=== PATIENT | female | born 1955 | race Caucasian/White ===

== ENCOUNTER 2017-05-02 08:22 | Emergency (ER) | payer BC ==
[~2017-05-02] VITALS: Ht 165.1 cm; Wt 77.1 kg
[~2017-05-02 08:22] MED LIST: ABILIFY5 MG PO; CARVEDILOL12.5 MG PO; PROZAC20 MG PO
[2017-05-02 09:17] LABS: BASOPHILS % 0.2 % (0.0-1.0); EOSINOPHILS % 0.2 % (0.0-6.0); HEMATOCRIT 45.8 % (34.2-44.1); HEMOGLOBIN 15.6 g/dL (12.0-16.0); LYMPHOCYTES # (AUTO) 0.7 (1.0-3.2); LYMPHOCYTES % 12.2 % (18.0-39.1); MEAN CORPUSCULAR HEMOGLOBIN 30.2 pg (28-32); MEAN CORPUSCULAR HGB CONC 34.1 g/dL (31-35); MEAN CORPUSCULAR VOLUME 88.6 fL (81-99); MONOCYTES # (AUTO) 0.4 (0.2-0.8); MONOCYTES % 6.4 % (4.4-11.3); NEUTROPHILS # (AUTO) 4.7 (2.1-6.9); NEUTROPHILS % 80.7 % (38.7-80.0); PLATELET COUNT 251 x10e3/uL (140-360); RED BLOOD COUNT 5.17 x10e6/uL (3.6-5.1); RED CELL DISTRIBUTION WIDTH 12.3 % (11.7-14.4)
[2017-05-02] MEDS ORDERED: SODIUM CHLORIDE 0.9% 1000ML 1,000 ML ONE (09:19)
[2017-05-02] MEDS ORDERED: SODIUM CHLORIDE 0.9% 1000ML 1,000 ML IV SCH (09:30)
[2017-05-02 09:48] LABS: ALANINE AMINOTRANSFERASE 32 IU/L (0-55); ALBUMIN 4.2 g/dL (3.5-5.0); ALBUMIN/GLOBULIN RATIO 0.9 (0.8-2.0); ALKALINE PHOSPHATASE 95 IU/L (40-150); ANION GAP 20.3 mmol/L (8-16); BLOOD UREA NITROGEN 8 mg/dL (7-26); BUN/CREATININE RATIO 10 (6-25); CALCIUM 9.8 mg/dL (8.4-10.2); CARBON DIOXIDE 22 mmol/L (22-29); CHLORIDE 92 mmol/L (98-107); CREATININE, SERUM 0.84 mg/dL (0.57-1.11); EST GLOMERULAR FILTRATION RATE > 60 ML/MIN (60-); GLUCOSE 153 mg/dL (74-118); POTASSIUM 3.3 mmol/L (3.5-5.1); SODIUM 131 mmol/L (136-145)
[2017-05-02 10:02] LABS: ACETAMINOPHEN 16 ug/mL (10-30)
[2017-05-02 10:06] LABS: SALICYLATE < 5.0 mg/dL (0-30)
[2017-05-02 10:55] LABS: BILIRUBIN,URINE NEGATIVE (NEGATIVE); CLARITY,URINE CLEAR (CLEAR); COLOR,URINE YELLOW (YELLOW); KETONES,URINE 3+ (NEGATIVE); LEUKOCYTE ESTERASE ,URINE NEGATIVE (NEGATIVE); NITRITE,URINE NEGATIVE (NEGATIVE); PROTEIN,URINE DIPSTICK NEGATIVE (NEGATIVE); URINE UROBILINOGEN 0.2 mg/dL (0.2 - 1)
[2017-05-02] MEDS ORDERED: POTASSIUM CHLORIDE 20 MEQ TAB CR PO STA (11:06)
[2017-05-02 11:12] LABS: AMPHETAMINES SCREEN,URINE NEGATIVE (NEGATIVE); BENZODIAZEPINES SCREEN,URINE POSITIVE (NEGATIVE); CANNABINOIDS SCREEN,URINE NEGATIVE (NEGATIVE); PHENCYCLIDINE SCREEN,URINE NEGATIVE (NEGATIVE)
[2017-05-02 11:14] LABS: BACTERIA,URINE RARE /HPF; EPITHELIAL CELLS,URINE FEW /LPF; RBC,URINE 0-5 /HPF (0-5); WBC,URINE (MAN) 0-5 /HPF (0-5)
[2017-05-02] MEDS ORDERED: ONDANSETRON HCL 4 MG ORAL DISINTEGRATING TAB PO ONE (13:15)
== END 2017-05-02 13:37 ==
LOC: ER 08:22
DX: T39.1X2A Poisoning by 4-Aminophenol derivatives, intentional self-harm, initial encounter (principal); T40.2X2A Poisoning by other opioids, intentional self-harm, initial encounter; F33.2 Major depressive disorder, recurrent severe without psychotic features; I10 Essential (primary) hypertension
CPT/HCPCS: 36415; 80053; 80307; 80320; 80329 ×2; 81001; 85025; 87086; 93005; 99284; J7030

== ENCOUNTER 2018-02-16 11:57 | Inpatient (IN) | payer BC ==
[~2018-02-16] VITALS: Ht 152.4 cm; Wt 74.0 kg
[2018-02-16] MEDS ORDERED: SODIUM CHLORIDE 0.9% 1000ML 1,000 ML IV STA (12:48)
[2018-02-16] MEDS ORDERED: PIPER-TAZ 3.375 GM 50 ML IV STA (12:48)
[2018-02-16] MEDS ORDERED: ACETAMINOPHEN 325 MG TAB PO STA (12:48)
--- NOTE | 2018-02-16 13:36 | Diagnostic Imaging Report ---
EXAM: FOREARM LEFT 2 VIEW DATE: 02/16/2018 12:48 PM INDICATION: \S\cat bite, rule out FB, gas in tissue, cellulitis \S\[id number] \S\1315 \S\Y swelling/fever. COMPARISON: None FINDINGS: No fracture or subluxation. No radiopaque foreign body or soft tissue gas identified. Soft tissue swelling present along the dorsum of the forearm. IMPRESSION: Soft tissue swelling along the dorsum of the forearm consistent with provided history. No radiopaque foreign body. Signed by: Dr. Bryant Lamb MD on 02/16/2018 1:33 PM
[2018-02-16 15:20] LABS: BASOPHILS % 0.2 % (0.0-1.0); HEMATOCRIT 40.5 % (34.2-44.1); HEMOGLOBIN 13.5 g/dL (12.0-16.0); LYMPHOCYTES # (AUTO) 0.9 (1.0-3.2); LYMPHOCYTES % 9.4 % (18.0-39.1); MEAN CORPUSCULAR HEMOGLOBIN 31.9 pg (28-32); MEAN CORPUSCULAR HGB CONC 33.3 g/dL (31-35); MEAN CORPUSCULAR VOLUME 95.7 fL (81-99); MONOCYTES # (AUTO) 0.6 (0.2-0.8); MONOCYTES % 6.1 % (4.4-11.3); NEUTROPHILS # (AUTO) 7.7 (2.1-6.9); PLATELET COUNT 346 x10e3/uL (140-360); RED BLOOD COUNT 4.23 x10e6/uL (3.6-5.1); RED CELL DISTRIBUTION WIDTH 12.6 % (11.7-14.4)
[2018-02-16 15:38] LABS: ANION GAP 20.7 mmol/L (8-16); BLOOD UREA NITROGEN 9 mg/dL (7-26); BUN/CREATININE RATIO 13 (6-25); CALCIUM 10.6 mg/dL (8.4-10.2); CARBON DIOXIDE 22 mmol/L (22-29); CHLORIDE 90 mmol/L (98-107); CREATININE, SERUM 0.71 mg/dL (0.57-1.11); EST GLOMERULAR FILTRATION RATE > 60 ML/MIN (60-); GLUCOSE 93 mg/dL (74-118); MAGNESIUM 1.8 MG/DL (1.3-2.1); POTASSIUM 3.7 mmol/L (3.5-5.1); SODIUM 129 mmol/L (136-145)
[2018-02-16] MEDS ORDERED: ONDANSETRON HCL INJ 2 MG/ML VIAL IV STA (18:05)
[2018-02-16] MEDS ORDERED: MORPHINE SULFATE 2 MG/ML SYR IV STA (18:05)
[2018-02-16] MEDS ORDERED: SODIUM CHLORIDE 0.9% 1000ML 1,000 ML IV SCH (18:15)
[2018-02-16] MEDS ORDERED: MORPHINE SULFATE 2 MG/ML SYR IV PRN (18:45)
[2018-02-16 19:18] LABS: CLARITY,URINE CLEAR (CLEAR); COLOR,URINE YELLOW (YELLOW)
[2018-02-16 19:19] LABS: BILIRUBIN,URINE 1+ (NEGATIVE); KETONES,URINE 2+ (NEGATIVE); LEUKOCYTE ESTERASE ,URINE NEGATIVE (NEGATIVE); NITRITE,URINE NEGATIVE (NEGATIVE); PROTEIN,URINE DIPSTICK TRACE (NEGATIVE); URINE UROBILINOGEN 0.2 mg/dL (0.2 - 1)
[2018-02-16 19:37] LABS: BACTERIA,URINE FEW /HPF; EPITHELIAL CELLS,URINE FEW /LPF; RBC,URINE 0-5 /HPF (0-5); WBC,URINE (MAN) 0-5 /HPF (0-5)
[2018-02-16] MEDS ORDERED: PIPER-TAZ 3.375 GM 50 ML ONE (19:57)
[2018-02-16] MEDS ORDERED: TRAZODONE HCL50 MG PO (20:27)
[2018-02-16] MEDS ORDERED: PROPRANOLOL HCL20 MG PO (20:27)
[2018-02-16] MEDS ORDERED: CRESTOR10 MG PO (20:27)
[2018-02-16] MEDS ORDERED: METOPROLOL SUCC50 MG PO (20:27)
[2018-02-16] MEDS ORDERED: SUBOXONE 2 MG-1 EAC2 TD (20:27)
[2018-02-16] MEDS ORDERED: BUTALB-CAFF-AC1 EACH PO (20:27)
[2018-02-16] MEDS: VANCOMYCIN 1GM/NS 250 ML 250 ML IV SCH (20:27)
[2018-02-16 21:22] VITALS: BP 142/67
[2018-02-16 22:00] VITALS: BP 142/67
[2018-02-17] VITALS (7 sets, daily range): BP systolic 122–154; BP diastolic 56–71
[2018-02-17] MEDS: SODIUM CHLORIDE 0.9% 1000ML 1,000 ML IV SCH ×4 (00:24→11:49)
[2018-02-17] MEDS: MORPHINE SULFATE INJ 4 MG/ML INJ IV PRN ×3 (00:44→10:02)
[2018-02-17] MEDS: ONDANSETRON HCL INJ 2 MG/ML VIAL IV PRN ×3 (00:44→10:02)
[2018-02-17] MEDS: VANCOMYCIN 1GM/NS 250 ML 250 ML IV SCH ×2 (09:05→17:13)
[2018-02-17] MEDS ORDERED: SUBOXONE 2 MG-1 EAC2 PO (09:45)
[2018-02-17] MEDS ORDERED: trintellix PO (09:51)
[2018-02-17] MEDS ORDERED: HYDRALAZINE HCL 20 MG/ML VIAL IV PRN (10:15)
[2018-02-17 10:42] LABS: BASOPHILS % 0.2 % (0.0-1.0); EOSINOPHILS % 0.2 % (0.0-6.0); HEMATOCRIT 32.5 % (34.2-44.1); HEMOGLOBIN 10.8 g/dL (12.0-16.0); LYMPHOCYTES % 14.8 % (18.0-39.1); MEAN CORPUSCULAR HGB CONC 33.2 g/dL (31-35); MEAN CORPUSCULAR VOLUME 96.2 fL (81-99); MONOCYTES # (AUTO) 0.6 (0.2-0.8); MONOCYTES % 8.7 % (4.4-11.3); NEUTROPHILS % 75.8 % (38.7-80.0); PLATELET COUNT 336 x10e3/uL (140-360); RED BLOOD COUNT 3.38 x10e6/uL (3.6-5.1); RED CELL DISTRIBUTION WIDTH 12.4 % (11.7-14.4)
[2018-02-17] MEDS ORDERED: ACETAMIN/BUTALBITAL/CAFFEINE TAB PO PRN (10:45)
--- NOTE | 2018-02-17 12:49 | Diagnostic Imaging Report ---
Exam: Head CT without contrast History: Headache, dizziness Comparison studies: None Technique: Axial images were obtained from the skull base to the vertex. Coronal and sagittal images reconstructed from the axial data. Dose modulation, iterative reconstruction, and/or weight based adjustment of the mA/kV was utilized to reduce the radiation dose to as low as reasonably achievable. Intravenous contrast: None Findings: Scalp: No abnormalities. Bones: No fractures, blastic or lytic lesions. Brain sulci: Appropriate for age. Ventricles: Normal in size and configuration. No hydrocephalus. Extra-axial spaces: No masses, no fluid collection. Parenchyma: No mass, hemorrhage or acute or chronic cortical vascular insults. A few subtle hypodensities in the supratentorial white matter are nonspecific but may reflect mild chronic microvascular ischemic changes. Sellar/suprasellar region: No abnormalities. Craniocervical junction: Patent foramen magnum. No Chiari one malformation. IMPRESSION: 1. No acute intracranial abnormalities. 2. Mild chronic microvascular ischemic changes. Signed by: Dr. Tonio Salomon M.D. on 02/17/2018 12:45 PM
[2018-02-17] MEDS: ACETAMIN/BUTALBITAL/CAFFEINE TAB PO PRN ×2 (12:50→22:23)
--- NOTE | 2018-02-17 13:13 | Consultation ---
DATE OF CONSULTATION: February 17, 2018 REASON FOR CONSULTATION: This patient has cat bite infection of the wrist. HISTORY OF PRESENT ILLNESS: This patient who is a 62-year-old white female comes in after she was bitten by her cat on Wednesday 4 days ago. She said she had a cat which she took in couple of years ago and she gave her, her shot and everything but is still strayed. The patient comes in after 4 days with cat bite being red and swollen. Not doing well. The wrist became painful and had to come to the hospital. According to the patient the cat is up-to-date on the rabies. REVIEW OF SYSTEMS HEENT: Negative. PULMONARY: Negative. CARDIAC: Negative. : Negative. SKIN: There is no rash. JOINT: Negative. PAST MEDICAL HISTORY: She does have history of hypertension. ALLERGIES: NKA. SOCIAL HISTORY: There is no smoking, drug abuse or alcohol abuse. FAMILY HISTORY: Unremarkable. LABORATORY DATA: Reviewed. Blood cultures still pending. White count is 9.8, hemoglobin 13.5, sodium 129, potassium 3.7, creatinine 0.71, and lactic acid 20.3. PHYSICAL EXAMINATION GENERAL: She is currently alert, oriented, and does not seem to be in acute distress. VITALS: Stable. Currently afebrile. HEENT: She is not icteric. NECK: Supple. CHEST: Clear. HEART: S1 and S2. No S3, S4. ABDOMEN: Soft. Bowel sounds present. No tenderness. EXTREMITIES: No edema. The left wrist has erythema and there is edema with severe tenderness. IMPRESSION: Cat bite, infected. Concern about the abscess. Concern about the osteomyelitis. PLAN: We will get an MRI with and without contrast of the wrist. We will consult hand surgery. I agree with vancomycin and Zosyn for now. Tdap, if not done recently. We will follow with you. Discussed internal medicine. Job#: [id number] SALOME
--- NOTE | 2018-02-17 14:42 | Diagnostic Imaging Report ---
Left Wrist MRI without contrast. History: Wrist pain. Cellulitis. Redness. Swelling. Abscess Comparison: Radiographs 02/16/2018 Technique: Coronal PD FS and PD. Axial PD FS. Sagital PD FS. Findings: Scapholunate ligament is intact. Lunotriquetral ligament is intact. Degeneration and fraying involving the ulnar styloid fibers of the triangular fibrocartilage complex. There is mild negative ulnar variance. No osteochondral lesion. No acute fracture or osteonecrosis. Mild scattered degenerative change. 2 mm dorsal ganglion cyst best seen on series 3 image 12. 1.0 cm ganglion cyst adjacent to the radial styloid/scaphoid bone best seen on series 3 image 10 through 13. Extensive soft tissue edema most pronounced at the dorsal aspect of the distal forearm/wrist. Abnormal fluid signal intensity/tenosynovitis is seen surrounding the extensor tendons and compartments 1-4. This is best seen on series 3 image 9 through 15. There is associated tendinosis and degeneration involving the extensor carpi radialis longus tendon. There is mild underlying bone marrow edema. The flexor tendons are intact. Signal intensity within the median nerve is normal. There is normal alignment of the wrist. There is dorsal capsular scarring and synovitis. Impression: Extensive soft tissue edema most pronounced at the dorsal aspect of the distal forearm/wrist. Abnormal fluid signal intensity/tenosynovitis is seen surrounding the extensor tendons and compartments 1-4. This is worrisome for an inflammatory process/infection. There is associated tendinosis and degeneration involving the extensor carpi radialis longus tendon. There is mild underlying bone marrow edema. No cortical destruction is seen. No well-formed drainable fluid collection/abscess is seen. Signed by: Dr. Robert Fisher M.D. on 02/17/2018 2:39 PM
--- NOTE | 2018-02-17 16:51 | Diagnostic Imaging Report ---
EXAM: Right upper quadrant abdominal ultrasound INDICATION: Nausea, vomiting COMPARISON: None. TECHNIQUE: Transverse and longitudinal images of the right upper quadrant abdomen were obtained FINDINGS: Liver: Size: 13 cm in the right midclavicular line, normal Appearance: Normal echogenicity, smooth contour Mass: No focal masses Gallbladder: Appears distended measuring up to 8.7 cm without pericholecystic fluid, wall thickening, stone, or reported sonographic Crespo's sign. Gallbladder wall measures 0.2 cm. Bile Ducts: Intrahepatic Ducts: No dilatation Extrahepatic Ducts: Common bile duct measures 0.3 cm, no dilatation Pancreas: Visualized portions of the pancreatic head, neck and proximal body are normal. Kidney: The right kidney measures 10.7 cm without evidence of hydronephrosis or stone. Vessels: Aorta: Not well visualized due to overlying bowel gas. Inferior Vena Cava: Visualized portions are normal Main Portal Vein: 0.8 cm, normal size with hepatopetal flow. Free Fluid: No ascites or pleural effusion IMPRESSION: Distended gallbladder without sonographic evidence of cholecystitis or stone. Otherwise unremarkable study. Signed by: Dr. Maya Gant MD on 02/17/2018 4:48 PM
[2018-02-17] MEDS: FAMOTIDINE 20 MG TAB PO SCH (17:13)
[2018-02-18 04:05] VITALS: BP 144/69
[2018-02-18 05:19] LABS: ANION GAP 16.5 mmol/L (8-16); BLOOD UREA NITROGEN < 5 mg/dL (7-26); CALCIUM 9.1 mg/dL (8.4-10.2); CARBON DIOXIDE 21 mmol/L (22-29); CHLORIDE 103 mmol/L (98-107); CREATININE, SERUM 0.55 mg/dL (0.57-1.11); EST GLOMERULAR FILTRATION RATE > 60 ML/MIN (60-); GLUCOSE 95 mg/dL (74-118); POTASSIUM 3.5 mmol/L (3.5-5.1); SODIUM 137 mmol/L (136-145)
[2018-02-18 05:21] LABS: BUN/CREATININE RATIO 9 (6-25)
[2018-02-18] MEDS: ONDANSETRON HCL INJ 2 MG/ML VIAL IV PRN ×2 (06:45→17:12)
[2018-02-18] MEDS: MORPHINE SULFATE INJ 4 MG/ML INJ IV PRN (06:45)
[2018-02-18] MEDS: SODIUM CHLORIDE 0.9% 1000ML 1,000 ML IV SCH (06:54)
[2018-02-18 08:20] VITALS: BP 143/74
[2018-02-18] MEDS ORDERED: TRAZODONE HCL 50 MG TAB PO SCH (09:00)
[2018-02-18] MEDS: TRINTELLIX 20 MG PO SCH (09:00)
[2018-02-18] MEDS ORDERED: TRINTELLIX 20 MG PO SCH (09:00)
[2018-02-18] MEDS ORDERED: SODIUM CHLORIDE 0.9% 250ML 0 ML ONE (09:33)
[2018-02-18] MEDS: METOPROLOL SUCCINATE 50 MG TAB XL PO SCH (09:48)
[2018-02-18] MEDS: VANCOMYCIN 1GM/NS 250 ML 250 ML IV SCH ×2 (09:48→18:47)
[2018-02-18] MEDS: FAMOTIDINE 20 MG TAB PO SCH ×2 (09:48→17:03)
[2018-02-18] MEDS ORDERED: BUPIVACAINE HCL 0.5% INJ 30 ML VIAL INJ ONE (11:33)
[2018-02-18] MEDS ORDERED: BACITRACIN 50,000 UNIT VIAL ONE (11:33)
[2018-02-18] MEDS ORDERED: MUPIROCIN 2% OINT 22 GM TUBE ONE (11:33)
[2018-02-18] MEDS ORDERED: HYDROMORPHONE 2MG/ML 2 MG/ML ML ONE (12:54)
[2018-02-18] MEDS ORDERED: FENTANYL CITRATE/PF 100MCG/2 ML INJ ONE (13:09)
[2018-02-18] MEDS ORDERED: MORPHINE SULFATE 2 MG/ML SYR ONE ×3 (13:30→13:51)
[2018-02-18] MEDS ORDERED: MEPERIDINE HCL INJ 50 MG/ML INJ ONE (14:04)
[2018-02-18] MEDS: ACETAMINOPHEN 325 MG TAB PO PRN (14:20)
--- NOTE | 2018-02-18 14:47 | Consultation ---
DATE OF CONSULTATION: February 17, 2018 REQUESTING PHYSICIAN: Dr. English, infectious disease. CHIEF COMPLAINT: Cat bite, left hand. HISTORY OF PRESENT ILLNESS: The patient is a 62-year-old right-hand dominant female who approximately one week ago was bitten by a cat on the left wrist. The patient states that over 48 to 72 hours after the bite the wrist became painful and swollen. She was seen at her nursing care center and then referred for admission. The patient was admitted yesterday and started on intravenous antibiotics and consultation is now requested of hand surgery for possible surgical intervention. PAST MEDICAL HISTORY: Noncontributory to the current problem. CURRENT PHYSICAL EXAMINATION: VITAL SIGNS: The patient is afebrile. Vital signs are stable. EXTREMITIES: There is extreme swelling and erythema surrounding a puncture wound on the dorsal radial aspect of the right wrist. Erythema extends up the forearm. The hand and wrist are quite swollen and there is pain with passive extension of the thumb, wrist and fingers. PERTINENT LABORATORY: Shows a white blood cell count of 6.5. An MRI was just done today that shows purulent tenosynovitis involving the extensor tendons of the 2nd and 3rd dorsal compartments. IMPRESSION: Purulent extensive tenosynovitis. PLAN: The patient has just finished eating. She will be kept n.p.o. after midnight and taken to the OR tomorrow for decompression of the extensor tendons. Aerobic and anaerobic studies will be performed at this time. Thank you for allowing me to participate in the care of your patient. Sincerely, Job#: [id number]
--- NOTE | 2018-02-18 15:16 | Operative Report ---
DATE OF PROCEDURE: February 18, 2018 PREOPERATIVE DIAGNOSIS: Cat bite left wrist. POSTOPERATIVE DIAGNOSIS: Purulent extensor tenosynovitis of the 2nd and 3rd dorsal compartments. PROCEDURE PERFORMED: Drainage of extensor tendon sheath, left 2nd and 3rd dorsal compartments. ANESTHESIA: General. INDICATIONS: The patient is a 62-year-old right hand dominant female who has a cat bite with purulent extensor tenosynovitis. The risks, benefits and alternatives of treatment were discussed with the patient. She is prepared to undergo the procedures outlined. DETAILS OF PROCEDURE: Patient was marked preoperatively in the holding area. She was brought to the operating theater. After the induction of adequate general anesthesia, she was prepped and draped in a supine position. A time out was performed. The left upper extremity was elevated for 3 to 4 minutes, and then a tourniquet was inflated to a pressure of 250 mmHg. A curvilinear incision was marked out over the dorsal radial aspect of the wrist and its encompassing 2 separate puncture wounds. The incision was made through the skin and subcutaneous tissue. Venous tributaries were controlled with the bipolar cautery. Immediately upon entering the subcutaneous space, purulent exudate was encountered and this was cultured for both aerobic and anaerobic studies. There was a large degree of extensor tenosynovitis which was inflammatory in nature directly at the distal aspect of the extensor retinaculum over the 2nd dorsal compartment. The 2nd dorsal compartment was incised, and purulent exudate was encountered. The extensor tenosynovium surrounding the extensor tendons was debrided, and then the 2nd dorsal compartment was copiously irrigated with an antibiotic-containing solution until the effluent was clear. The EPL tendon was then identified, and it was traced through the extensor retinaculum partially and noted to have no significant purulence but there was some inflammatory tissue around the exit site of the EPL from beneath the extensor retinaculum and this was removed as well. At this point, once the infectious material had been removed, packing was placed in the 2nd dorsal compartment. The wound was closed loosely over the packing using 5-0 nylon in interrupted horizontal mattress fashion. A Marcaine field block was performed at the operative site. Tourniquet was deflated. All the fingers pinked up nicely, and a sterile bulking conforming bandage was applied from the fingertips to the forearm. A fiberglass splint was fashioned to maintain the wrist in a modest amount of extension and held in place with a loosely wrapped Danilo wrap. Patient tolerated the procedure well and was brought to the recovery room in satisfactory condition. The patient was then admitted to the recovery room and transferred to her hospital bed for further care and treatment. Job#: [id number] EV
[2018-02-18 16:00] VITALS: BP 158/87
[2018-02-18] MEDS: PIPER-TAZ 3.375 GM 50 ML IV SCH (17:03)
[2018-02-18] MEDS: ACETAMIN/BUTALBITAL/CAFFEINE TAB PO PRN (19:11)
[2018-02-18] MEDS ORDERED: DEXAMETHASONE SOD PHOS INJ 4 MG/ML VIAL ONE (19:35)
[2018-02-18] MEDS ORDERED: ONDANSETRON HCL INJ 2 MG/ML VIAL ONE (19:35)
[2018-02-18] MEDS ORDERED: SEVOFLURANE INHAL SOLN 250 ML PEN BTL ONE (19:35)
[2018-02-18] MEDS ORDERED: PROPOFOL IV EMULSION 10 MG/ML 20 ML VIAL ONE (19:35)
[2018-02-18] MEDS ORDERED: LIDOCAINE HCL 2% LOCAL INJ 5 ML SDV VIAL INJ ONE (19:35)
[2018-02-18] MEDS ORDERED: MIDAZOLAM HCL 2 MG/2 ML VIAL ONE (19:35)
[2018-02-18] MEDS ORDERED: KETAMINE HCL INJ 50 MG/ML 10 ML VIAL ONE (19:35)
[2018-02-18 20:00] VITALS: BP 133/66
[2018-02-18 20:30] VITALS: BP 133/66
[2018-02-18] MEDS: TRAZODONE HCL 50 MG TAB PO SCH (21:45)
[2018-02-19 00:08] VITALS: BP 123/62
[2018-02-19] MEDS: PIPER-TAZ 3.375 GM 50 ML IV SCH ×4 (00:40→16:52)
[2018-02-19] MEDS: SODIUM CHLORIDE 0.9% 1000ML 1,000 ML IV SCH (02:54)
[2018-02-19] MEDS: MORPHINE SULFATE INJ 4 MG/ML INJ IV PRN ×3 (02:58→16:00)
[2018-02-19] MEDS: ACETAMINOPHEN 325 MG TAB PO PRN (04:06)
[2018-02-19] MEDS: ACETAMIN/BUTALBITAL/CAFFEINE TAB PO PRN ×3 (04:45→20:07)
[2018-02-19 05:29] LABS: BASOPHILS % 0.2 % (0.0-1.0); EOSINOPHILS # (AUTO) 0.1 (0.0-0.4); EOSINOPHILS % 0.8 % (0.0-6.0); HEMATOCRIT 30.9 % (34.2-44.1); HEMOGLOBIN 10.6 g/dL (12.0-16.0); LYMPHOCYTES # (AUTO) 1.8 (1.0-3.2); LYMPHOCYTES % 29.1 % (18.0-39.1); MEAN CORPUSCULAR HEMOGLOBIN 31.8 pg (28-32); MEAN CORPUSCULAR HGB CONC 34.3 g/dL (31-35); MEAN CORPUSCULAR VOLUME 92.8 fL (81-99); MONOCYTES # (AUTO) 0.5 (0.2-0.8); MONOCYTES % 8.5 % (4.4-11.3); NEUTROPHILS # (AUTO) 3.9 (2.1-6.9); NEUTROPHILS % 61.1 % (38.7-80.0); PLATELET COUNT 371 x10e3/uL (140-360); RED BLOOD COUNT 3.33 x10e6/uL (3.6-5.1); RED CELL DISTRIBUTION WIDTH 12.2 % (11.7-14.4)
[2018-02-19 05:46] LABS: ANION GAP 15.5 mmol/L (8-16); BLOOD UREA NITROGEN 6 mg/dL (7-26); BUN/CREATININE RATIO 10 (6-25); CALCIUM 8.6 mg/dL (8.4-10.2); CARBON DIOXIDE 21 mmol/L (22-29); CHLORIDE 104 mmol/L (98-107); CREATININE, SERUM 0.58 mg/dL (0.57-1.11); EST GLOMERULAR FILTRATION RATE > 60 ML/MIN (60-); GLUCOSE 97 mg/dL (74-118); MAGNESIUM 1.7 MG/DL (1.3-2.1); PHOSPHORUS 1.9 MG/DL (2.3-4.7); POTASSIUM 3.5 mmol/L (3.5-5.1); SODIUM 137 mmol/L (136-145)
[2018-02-19 06:01] VITALS: BP 118/59
[2018-02-19 08:00] VITALS: BP 138/71
[2018-02-19] MEDS: TRINTELLIX 20 MG PO SCH (09:00)
[2018-02-19] MEDS: FAMOTIDINE 20 MG TAB PO SCH ×2 (09:24→16:52)
[2018-02-19] MEDS: VANCOMYCIN 1GM/NS 250 ML 250 ML IV SCH ×2 (09:25→17:14)
[2018-02-19] MEDS: METOPROLOL SUCCINATE 50 MG TAB XL PO SCH (09:25)
[2018-02-19] MEDS: MUPIROCIN 2% OINT 22 GM TUBE TOP SCH (10:00)
[2018-02-19 12:00] VITALS: BP 138/71
[2018-02-19 16:00] VITALS: BP 141/63
[2018-02-19] MEDS ORDERED: MAGNESIUM SULF 1GRAM/DEXTROSE 100 ML IV ONE (16:00)
[2018-02-19] MEDS ORDERED: POTASSIUM PHOSPHATE 20 MM in SODIUM CHLORIDE 0.9% 250ML 250 ML IV ONE (17:00)
[2018-02-19 20:00] VITALS: BP 124/60
[2018-02-19] MEDS: TRAZODONE HCL 50 MG TAB PO SCH (20:07)
[2018-02-20] VITALS: BP 137/65
[2018-02-20] MEDS: PIPER-TAZ 3.375 GM 50 ML IV SCH ×5 (01:00→23:55)
[2018-02-20] MEDS: SODIUM CHLORIDE 0.9% 1000ML 1,000 ML IV SCH ×2 (03:11→16:44)
[2018-02-20 04:00] VITALS: BP 128/66
[2018-02-20 06:32] LABS: ANION GAP 15.5 mmol/L (8-16); BLOOD UREA NITROGEN < 5 mg/dL (7-26); CALCIUM 8.7 mg/dL (8.4-10.2); CARBON DIOXIDE 23 mmol/L (22-29); CHLORIDE 107 mmol/L (98-107); CREATININE, SERUM 0.55 mg/dL (0.57-1.11); EST GLOMERULAR FILTRATION RATE > 60 ML/MIN (60-); GLUCOSE 112 mg/dL (74-118); POTASSIUM 3.5 mmol/L (3.5-5.1); SODIUM 142 mmol/L (136-145)
[2018-02-20 06:33] LABS: BUN/CREATININE RATIO 9 (6-25)
[2018-02-20 07:39] VITALS: BP 135/75
[2018-02-20] MEDS: TRINTELLIX 20 MG PO SCH (09:00)
[2018-02-20] MEDS: FAMOTIDINE 20 MG TAB PO SCH ×2 (09:39→16:44)
[2018-02-20] MEDS: ACETAMIN/BUTALBITAL/CAFFEINE TAB PO PRN ×2 (09:39→19:23)
[2018-02-20] MEDS: VANCOMYCIN 1GM/NS 250 ML 250 ML IV SCH ×2 (09:39→17:18)
[2018-02-20] MEDS: MUPIROCIN 2% OINT 22 GM TUBE TOP SCH (09:39)
[2018-02-20] MEDS: METOPROLOL SUCCINATE 50 MG TAB XL PO SCH (09:39)
[2018-02-20 11:38] VITALS: BP 161/80
[2018-02-20 16:08] VITALS: BP 133/74
[2018-02-20 20:00] VITALS: BP 144/74
[2018-02-20] MEDS ORDERED: POTASSIUM CHLORIDE 20 MEQ TAB CR PO STA (20:22)
[2018-02-20] MEDS: TRAZODONE HCL 50 MG TAB PO SCH (21:56)
[2018-02-21] VITALS (8 sets, daily range): BP systolic 142–176; BP diastolic 66–89
[2018-02-21] MEDS: PIPER-TAZ 3.375 GM 50 ML IV SCH ×3 (05:23→17:14)
[2018-02-21 05:47] LABS: BASOPHILS % 0.4 % (0.0-1.0); EOSINOPHILS # (AUTO) 0.1 (0.0-0.4); EOSINOPHILS % 3.1 % (0.0-6.0); HEMATOCRIT 30.9 % (34.2-44.1); HEMOGLOBIN 10.6 g/dL (12.0-16.0); LYMPHOCYTES # (AUTO) 1.5 (1.0-3.2); LYMPHOCYTES % 32.9 % (18.0-39.1); MEAN CORPUSCULAR HEMOGLOBIN 32.1 pg (28-32); MEAN CORPUSCULAR HGB CONC 34.3 g/dL (31-35); MEAN CORPUSCULAR VOLUME 93.6 fL (81-99); MONOCYTES # (AUTO) 0.3 (0.2-0.8); MONOCYTES % 7.1 % (4.4-11.3); NEUTROPHILS # (AUTO) 2.6 (2.1-6.9); NEUTROPHILS % 56.3 % (38.7-80.0); PLATELET COUNT 397 x10e3/uL (140-360); RED CELL DISTRIBUTION WIDTH 12.6 % (11.7-14.4)
[2018-02-21 05:58] LABS: BLOOD UREA NITROGEN < 5 mg/dL (7-26); CALCIUM 9.1 mg/dL (8.4-10.2); CARBON DIOXIDE 23 mmol/L (22-29); CHLORIDE 110 mmol/L (98-107); CREATININE, SERUM 0.58 mg/dL (0.57-1.11); EST GLOMERULAR FILTRATION RATE > 60 ML/MIN (60-); GLUCOSE 120 mg/dL (74-118); PHOSPHORUS 2.6 MG/DL (2.3-4.7); SODIUM 143 mmol/L (136-145)
[2018-02-21 06:00] LABS: BUN/CREATININE RATIO 9 (6-25)
[2018-02-21] MEDS: TRINTELLIX 20 MG PO SCH (09:00)
[2018-02-21] MEDS: VANCOMYCIN 1GM/NS 250 ML 250 ML IV SCH (09:17)
[2018-02-21] MEDS: FAMOTIDINE 20 MG TAB PO SCH ×2 (09:17→17:14)
[2018-02-21] MEDS: ACETAMIN/BUTALBITAL/CAFFEINE TAB PO PRN (09:17)
[2018-02-21] MEDS: MUPIROCIN 2% OINT 22 GM TUBE TOP SCH (09:19)
[2018-02-21] MEDS: METOPROLOL SUCCINATE 50 MG TAB XL PO SCH (09:19)
[2018-02-21] MEDS ORDERED: ACETAMINOPHEN/CODEINE 300MG - 30MG TAB PO PRN (11:45)
[2018-02-21] MEDS: SODIUM CHLORIDE 0.9% 1000ML 1,000 ML IV SCH (14:48)
--- NOTE | 2018-02-21 19:03 | Diagnostic Imaging Report ---
EXAMINATION: CHEST XRAY LINE PLACEMENT INDICATION: \S\RUE PICC placement confirmation \S\[id number] \S\175 COMPARISON: None FINDINGS: AP view TUBES and LINES: Right upper extremity PICC tip mid to lower SVC. LUNGS: Lungs are well inflated. Lungs are clear. There is no evidence of pneumonia or pulmonary edema. PLEURA: No pleural effusion or pneumothorax. HEART AND MEDIASTINUM: The cardiomediastinal silhouette is unremarkable. BONES AND SOFT TISSUES: No acute osseous lesion. Soft tissues are unremarkable. UPPER ABDOMEN: No free air under the diaphragm. IMPRESSION: Right upper extremity PICC tip mid to lower SVC. No acute thoracic abnormality. Signed by: DR. Romain Holland MD on 02/21/2018 7:00 PM
[2018-02-21] MEDS ORDERED: MUPIROCIN22 GM TOP (20:29)
[2018-02-21] MEDS ORDERED: FAMOTIDINE20 MG PO (20:29)
[2018-02-21] MEDS ORDERED: Acetamin/Butalbital/Caffeine PO (20:29)
[2018-02-21] MEDS ORDERED: VANCOMYCIN HCL 1.5 GM in SODIUM CHLORIDE 0.9% 250ML 300 ML IV SCH (21:00)
[2018-02-21] MEDS ORDERED: MEROPENEM 500 MG VIAL IV SCH (22:00)
[2018-02-21] MEDS ORDERED: MEROPENEM 500MG 500 MG in SODIUM CHLORIDE 0.9% 50ML 50 ML IV SCH (22:00)
--- NOTE | 2018-02-22 00:35 | Discharge Summary ---
PERTINENT HISTORY AND PHYSICAL FINDINGS/CHIEF COMPLAINT: Left wrist swelling, left wrist wound and left wrist pain. HISTORY OF PRESENT ILLNESS: The patient is a 62-year-old female that complains of the aforementioned chief complaint after a cat bite from a neighborhood cat on the Wednesday morning prior to admission. The wrist signs and symptoms worsened; so, she went to her PCP on Wednesday prior to admission. She received antibiotic prescription for Augmentin and took 2 days without improvement. She then went to urgent care on Wednesday who advised her to go to the emergency room. The pain was sharp and worse with movement. Nothing improved the pain. At that time, the patient had yellow drainage from the wound . She also complained of nausea, vomiting, dizziness with movement since the Wednesday prior to that. PAST MEDICAL HISTORY: MDD, anxiety, hypertension and headaches. She has a history of tubal ligation. ALLERGIES: NONE KNOWN. PCP: Dr. Dickson Peres. ADMISSION DIAGNOSES 1. Left wrist cellulitis, status post cat bite. 2. MDD. 3. Hypertension. 4. Headaches. 5. Dizziness. 6. Nausea and vomiting DISCHARGE DIAGNOSES 1. Left wrist abscess and cellulitis, status post cat bite. 2. Tenosynovitis, purulent, extensor of left wrist, status post drainage of extensor tendon sheath, left wrist February 18, 2018. Postoperative day #3. 3. MDD with anxiety. 4. Hypertension. 5. Headaches. 6. Nausea and vomiting. 7. Dizziness. 8. Hypokalemia. 9. Hypophosphatemia. 10. Obesity. On February 16, 2018, sodium 129, potassium 3.7, chloride 90, CO2 of 22, anion gap 20.7, BUN 9, and creatinine 0.71. GFR greater than 60. Calcium 10.6, magnesium 1.8, lactic acid 20.3. WBC is 9.18, hemoglobin 13.5, hematocrit 40.5, and platelets 346,000. Urinalysis showed trace amount of protein, 2+ ketones, trace amount of blood, 1+ bilirubin. Vancomycin trough level on February 18, 2018, was 5.3 and on February 20, 2018, was 6.8. Blood cultures collected on February 16, 2018, showed no growth after 5 days. Urine culture was negative on February 17, 2018. Wound culture showed no growth in 3 days. No organism. On February 18, 2018, wound culture collected which showed no growth after 3 days. Forearm x-ray on February 16, 2018, showed soft tissue swelling along the dorsum of the forearm consistent with the provided history. Abdominal ultrasound on February 17, 2018, showed distended gallbladder without sonographic evidence of cholecystitis or stone. CT of the brain was negative for any acute abnormality. Wrist MRI done on February 17, 2018, showed extensive soft tissue edema, most pronounced at the dorsal aspect of the distal forearm and wrist. Abnormal fluid signal intensity/tenosynovitis was seen surrounding the extensor tendons in compartments 1, 3 and 4. This is worrisome for an inflammatory process or infection. There was associated tendinosis and degeneration involving the extensor carpi radialis longus tendon and mild underlying bone marrow edema. No well formed drainable fluid collection or abscess was seen. Chest x-ray completed on February 16, 2018, showed good placement of PICC line in the right upper extremity with the tip mid to lower superior vena cava. Bilateral carotid Doppler ultrasound completed on February 18, 2018, showed no evidence of significant stenosis. A 12-lead EKG on February 17, 2018, showed normal sinus rhythm with a ventricular lead of 71. The patient underwent drainage of extensor tendon sheath, left 2nd and 3rd dorsal compartments on February 18, 2018, with postoperative diagnosis purulent extensor tenosynovitis of the 2nd and 3rd dorsal compartments. During her stay, the patient continued to receive IV antibiotics including vancomycin, Zosyn, and Merrem. Pain control was provided with analgesics. Most of her home medications were continued during her stay and she received electrolyte repletion p.r.n. She has done well postoperatively, has been eating well, minimal use of morphine. She has been tolerating getting out of bed for bathroom privileges. Vital signs have been stable. Today, vital signs include temperature 96.5, heart rate 65, blood pressure 150/74, respirations 18, and oxygen saturation 96%. Physical examination is unchanged from yesterday. Left arm has an Danilo wrap dressing covering. Patient's discharge plan includes receiving IV antibiotics at home. Consulting physicians included Dr. English with infectious disease who has been managing her antibiotics. Vancomycin dosage increased due to low vancomycin trough levels. The antibiotics should be delivered to the patient's home tonight, and [facility] will be administering the IV antibiotics once a day. There has been substantial teaching to educate the patient and her on how to administer antibiotics on their own at home when home health not available to do so. [facility] will be delivering the IV antibiotics to the home. Patient is to follow up with Dr. Rodriguez with hand surgery in 1 week. Follow up with Dr. English in 1 week. Follow up with Dr. Benitez in a week and follow up with PCP in 1 to 2 weeks. Today, laboratory data includes sodium 143, potassium 4.0, chloride 110, CO2 of 23, BUN less than 5, creatinine 0.58, and glucose 120. WBC is 4.53, hemoglobin 10.6, hematocrit 30.9, platelets 397,000, and neutrophils 56.3. Patient will be discharged on a regular diet. ACTIVITY LEVEL: As tolerated. Dictated by: Tomi Jaime, Acute Care Nurse Practitioner CAS BENITEZ MD Job#: [id number]
[2018-02-22 08:00] VITALS: BP 89/52
--- OUTSIDE RECORDS SUMMARY | 2018-02-22 12:51 | XMS REPORT ---
Author [facility] Address Unknown Phone Unavailable Care Team Providers Care Director Social Service Name Role Phone CAS LEE Unavailable Unavailable Problems This patient has no known problems. Allergies, Adverse Reactions, Alerts This patient has no known allergies or adverse reactions. Medications This patient has no known medications. Results Test Description Test Time Test Comments Text Results Atomic Results Result Comments CHEST XRAY LINE PLACEMENT 2018-02-21 18:59:00 [place] [address] Patient Name: TINO PAVON MR #: [id number] : 1955 Age/Sex: 62/F Req #: [id number] [facility] Physician: CAS LEE MD Ordered by: TORI JAQUEZ MD Report #: [id number] Location: [facility]/SURG Room/Bed: [facility] Procedure: [id number] DX/CHEST XRAY LINE PLACEMENT Exam Date: 02/21/18 Exam Time: 1754 REPORT STATUS: Signed EXAMINATION: CHEST XRAY LINE PLACEMENT INDICATION: COMPARISON: None FINDINGS: AP view TUBES and LINES: Right upper extremity PICC tip mid to lower SVC. LUNGS: Lungs are well inflated. Lungs are clear. There is no evidence of pneumonia or pulmonary edema. PLEURA: No pleural effusion or pneumothorax. HEART AND MEDIASTINUM: The cardiomediastinal silhouette is unremarkable. BONES AND SOFT TISSUES: No acute osseous lesion. Soft tissues are unremarkable. UPPER ABDOMEN: No free air under the diaphragm. IMPRESSION: Right upper extremity PICC tip mid to lower SVC. No acute thoracic abnormality. Signed by: DR. Romain Perea MD on 02/21/2018 7:00 PM Dictated By: ROMAIN PEREA MD 99 Transcribed By: HONEY on 02/21/181899 COPY TO: TORI JAQUEZ MD US ABDOMEN LIMITED 2018-02-17 16:45:00 [facility] [address] [place] [address] Patient Name: TINO PAVON MR #: [id number] : 1955 Age/Sex: 62/F Req #: [id number] Adm Physician: CAS LEE MD Ordered by: Claire Long NP Report #: [id number] Location: MED/SURG2 Room/Bed: [facility] Procedure: [id number] US/US ABDOMEN LIMITED Exam Date: 02/17/18 Exam Time: 1424 REPORT STATUS: Signed EXAM: Right upper quadrant abdominal ultrasound INDICATION: Nausea, vomiting COMPARISON: None. TECHNIQUE: Transverse and longitudinal images of the right upper quadrant abdomen were obtained FINDINGS: Liver: Size: 13 cm in the right midclavicular line, normal Appearance: Normal echogenicity, smooth contour Mass: No focal masses Gallbladder: Appears distended measuring up to 8.7 cm without pericholecystic fluid, wall thickening, stone, or reported sonographic Crespo's sign. Gallbladder wall measures 0.2 cm. Bile Ducts: Intrahepatic Ducts: No dilatation Extrahepatic Ducts: Common bile duct measures 0.3 cm, no dilatation Pancreas: Visualized portions of the pancreatic head, neck and proximal body are normal. Kidney: The right kidney measures 10.7 cm without evidence of hydronephrosis or stone. Vessels: Aorta: Not well visualized due to overlying bowel gas. Inferior Vena Cava: Visualized portions are normal Main Portal Vein: 0.8 cm, normal size with hepatopetal flow. Free Fluid: No ascites or pleural effusion IMPRESSION: Distended gallbladder without sonographic evidence of cholecystitis or stone. Otherwise unremarkable study. Signed by: Dr. Jacquelin Villeda MD on 02/17/2018 4:48 PM Dictated By: JACQUELIN VILLEDA MD 47 Transcribed By: HONEY on 02/17/181647 COPY TO: CLAIRE LONG NP MRI WRIST LEFT WO 2018-02-17 14:27:00 [place] [address] Patient Name: TINO PAVON MR #: [id number] : 1955 Age/Sex: 62/F Req #: [id number] Adm Physician: CAS LEE MD Ordered by: TORI JAQUEZ MD Report #: [id number] Location: MED/SURG2 Room/Bed: [facility] Procedure: [id number] MRI/MRI WRIST LEFT WO Exam Date: Exam Time: REPORT STATUS: Signed Left Wrist MRI without contrast. History: Wrist pain. Cellulitis. Redness. Swelling. Abscess Comparison: Radiographs 02/16/2018 Technique: Coronal PD FS and PD. Axial PD FS. Sagital PD FS. Findings: Scapholunate ligament is intact. Lunotriquetral ligament is intact. Degeneration and fraying involving the ulnar styloid fibers of the triangular fibrocartilage complex. There is mild negative ulnar variance. No osteochondral lesion. No acute fracture or osteonecrosis. Mild scattered degenerative change. 2 mm dorsal ganglion cyst best seen on series 3 image 12. 1.0 cm ganglion cyst adjacent to the radial styloid/scaphoid bone best seen on series 3 image 10 through 13. Extensive soft tissue edema most pronounced at the dorsal aspect of the distal forearm/wrist. Abnormal fluid signal intensity/tenosynovitis is seen surrounding the extensor tendons and compartments 1-4. This is best seen on series 3 image 9 through 15. There is associated tendinosis and degeneration involving the extensor carpi radialis longus tendon. There is mild underlying bone marrow edema. The flexor tendons are intact. Signal intensity within the median nerve is normal. There is normal alignment of the wrist. There is dorsal capsular scarring and synovitis. Impression: Extensive soft tissue edema most pronounced at the dorsal aspect of the distal forearm/wrist. Abnormal fluid signal intensity/tenosynovitis is seen surrounding the extensor tendons and compartments 1-4. This is worrisome for an inflammatory process/infection. There is associated tendinosis and degeneration involving the extensor carpi radialis longus tendon. There is mild underlying bone marrow edema. No cortical destruction is seen. No well-formed drainable fluid collection/abscess is seen. Signed by: Dr. Robert Fisher M.D. on 02/17/2018 2:39 PM Dictated By: ROBERT FISHER MD, MD 1439 Transcribed By: HONEY on 02/17/18 1439 COPY TO: TORI JAQUEZ MD CT BRAIN WO 2018-02-17 12:42:00 [place] [address] Patient Name: TINO PAVON MR #: [id number] : 1955 Age/Sex: 62/F Req #: [id number] Adm Physician: CAS LEE MD Ordered by: Claire Long [employer] OPERATOR HELPER Report #: [id number] Location: MED/SURG2 Room/Bed: [facility] Procedure: [id number] CT/CT BRAIN WO Exam Date: 02/17/18 Exam Time: 1130 REPORT STATUS: Signed Exam: Head CT without contrast History: Headache, dizziness Comparison studies: None Technique: Axial images were obtained from the skull base to the vertex. Coronal and sagittal images reconstructed from the axial data. Dose modulation, iterative reconstruction, and/or weight based adjustment of the mA/kV was utilized to reduce the radiation dose to as low as reasonably achievable. Intravenous contrast: None Findings: Scalp: No abnormalities. Bones: No fractures, blastic or lytic lesions. Brain sulci: Appropriate for age. Ventricles: Normal in size and configuration. No hydrocephalus. Extra-axial spaces: No masses, no fluid collection. Parenchyma: No mass, hemorrhage or acute or chronic cortical vascular insults. A few subtle hypodensities in the supratentorial white matter are nonspecific but may reflect mild chronic microvascular ischemic changes. Sellar/suprasellar region: No abnormalities. Craniocervical junction: Patent foramen magnum. No Chiari one malformation. IMPRESSION: 1. No acute intracranial abnormalities. 2. Mild chronic microvascular ischemic changes. Signed by: Dr. Yodit Salomon M.D. on 02/17/2018 12:45 PM Dictated By: YODIT SALOMON MD 1245 Transcribed By: HONEY on 02/17/18 1245 COPY TO: CLAIRE LONG [employer] OPERATOR HELPER FOREARM LEFT 2 VIEW 2018-02-16 13:32:00 [place] [address] Patient Name: TINO PAVON MR #: [id number] : 1955 Age/Sex: 62/F Req #: [id number] Adm Physician: Ordered by: CAROLYN WONG NP Report #: [id number] Location: ER Room/Bed: Procedure: [id number] DX/FOREARM LEFT 2 VIEW Exam Date: 02/16/18 Exam Time: 1315 REPORT STATUS: Signed EXAM: FOREARM LEFT 2 VIEW DATE: 02/16/2018 12:48 PM INDICATION: COMPARISON: None FINDINGS: No fracture or subluxation. No radiopaque foreign body or soft tissue gas identified. Soft tissue swelling present along the dorsum of the forearm. IMPRESSION: Soft tissue swelling along the dorsum of the forearm consistent with provided history. No radiopaque foreign body. Signed by: Dr. Bryant Lamb MD on 02/16/2018 1:33 PM Dictated By: BRYANT LAMB MD Transcribed By: HONEY on 02/16/187 COPY TO: CAROLYN WONG NP
== END 2018-02-21 21:07 | disposition home or self-care (01) | DRG 501 ==
LOC: ER 11:57 → ERHOLD 19:58 → MED/SURG2 21:13
PROVIDERS: ADMIT Internal Medicine; ATTEND Internal Medicine
PROC: 0LB50ZZ Excision of Right Lower Arm and Wrist Tendon, Open Approach (ICD-10-PCS; principal; 2018-02-18 11:30)
PROC: 02HV33Z Insertion of Infusion Device into Superior Vena Cava, Percutaneous Approach (ICD-10-PCS; 2018-02-21)
PROC: B5181ZA Fluoroscopy of Superior Vena Cava using Low Osmolar Contrast, Guidance (ICD-10-PCS; 2018-02-21)
DX: M65.142 Other infective (teno)synovitis, left hand (principal); L03.114 Cellulitis of left upper limb; S50.872A Other superficial bite of left forearm, initial encounter; W55.01XA Bitten by cat, initial encounter; F32.9 Major depressive disorder, single episode, unspecified; I10 Essential (primary) hypertension; E83.39 Other disorders of phosphorus metabolism; E87.6 Hypokalemia; F41.9 Anxiety disorder, unspecified; K81.9 Cholecystitis, unspecified; I88.9 Nonspecific lymphadenitis, unspecified; E83.52 Hypercalcemia
CPT/HCPCS: 36415; 36569; 70450; 71045; 76705; 80048; 80202; 81001; 82306; 83605; 83690; 83735; 83970; 84100; 85025; 87040; 87071; 87075; 87086; 87205; 93005; 93880; 96360; 96361; 99284; J1100; J2001; J2175; J2185; J2250; J2270; J2405; J2543; J3370; J3475; J7030; J7050

== ENCOUNTER 2020-05-26 10:47 | Emergency (ER) | payer BC ==
[~2020-05-26] VITALS: Ht 152.4 cm; Wt 73.9 kg
[~2020-05-26 10:47] MED LIST changes: +Acetamin/Butalbital/Caffeine PO; +BUTALB-CAFF-AC1 EACH PO; +CRESTOR10 MG PO; +FAMOTIDINE20 MG PO; +METOPROLOL SUCC50 MG PO; +MUPIROCIN22 GM TOP; +PROPRANOLOL HCL20 MG PO; +SUBOXONE 2 MG-1 EAC2 PO; +SUBOXONE 2 MG-1 EAC2 TD; +TRAZODONE HCL50 MG PO; +trintellix PO
[2020-05-26] MEDS ORDERED: HYDROCODONE/APAP 5MG-325MG TAB PO ONE (11:00)
[2020-05-26] MEDS ORDERED: TYLENOL # 31 EA PO (13:28)
[2020-05-26] MEDS ORDERED: AUGMENTIN 875-1 EACH PO (13:28)
[2020-05-26] MEDS ORDERED: MUPIROCIN22 GM TOP (13:28)
== END 2020-05-26 13:32 | disposition home or self-care (01) ==
LOC: ER 11:22
DX: S91.351A Open bite, right foot, initial encounter (principal); W55.01XA Bitten by cat, initial encounter; Y92.008 Other place in unspecified non-institutional (private) residence as the place of occurrence of the external cause; I10 Essential (primary) hypertension; F41.9 Anxiety disorder, unspecified; F32.9 Major depressive disorder, single episode, unspecified; G47.00 Insomnia, unspecified
CPT/HCPCS: 99283

== ENCOUNTER → 2021-12-01 | Outpatient (CLI) | payer OTHER ==
[~2021-12-01] MED LIST changes: +AUGMENTIN 875-1 EACH PO; +TYLENOL # 31 EA PO
== END ==
LOC: MRI 14:48
PROVIDERS: ATTEND Specialist
DX: S83.221A Peripheral tear of medial meniscus, current injury, right knee, initial encounter (principal); S83.411A Sprain of medial collateral ligament of right knee, initial encounter; S80.01XA Contusion of right knee, initial encounter